=== PATIENT | female | born 1930 | race Caucasian/White ===

== ENCOUNTER 2017-05-04 15:13 | Emergency (ER) | payer MEDICARE, BC ==
--- NOTE | 2017-05-04 16:09 | ED ---
General Adult HPI - General Chief complaint: Head Injury Stated complaint: Fall Time Seen by Provider: 05/04/17 15:56 Source: patient, RN notes reviewed Mode of arrival: ambulatory Limitations: no limitations - History of Present Illness Initial comments: Patient 86-year-old female who presents emergency room today with a chief complaint of a head injury that occurred approximate hour ago. Patient admitted that she walked into her bathroom and she went to turn around and lost her balance falling over to the left side door frame. She states she had left side of her head. She states she did not lose consciousness. She does admit to a mild headache and some sensitivity to the area. Patient denies any other injury or complaint. Patient states she is not on any blood thinners. Patient denies any recent fever, chills, shortness of breath, chest pain, back pain, abdominal pain, nausea or vomiting, numbness or tingling, visual changes, or any other complaints. - Related Data Home Medications Medication Instructions Recorded Confirmed Carvedilol [Coreg] 6.25 mg PO BID 09/23/15 05/04/17 Cholecalciferol [Vitamin D3] 2,000 unit PO DAILY 09/23/15 05/04/17 Ferrous Sulfate [Feosol] 325 mg PO MOWEFR 09/23/15 05/04/17 Lisinopril [Prinivil] 5 mg PO DAILY 09/23/15 05/04/17 Omeprazole [PriLOSEC] 20 mg PO BID 09/23/15 05/04/17 Simvastatin [Zocor] 40 mg PO HS 09/23/15 05/04/17 Vit C/E/Zn/Coppr/Lutein/Zeaxan 1 cap PO BID 09/23/15 05/04/17 [Preservision Areds 2 Softgel] Aspirin [Adult Low Dose Aspirin EC] 81 mg PO DAILY 05/04/17 05/04/17 Clemastine Fumarate [Tavist] 2.68 mg PO DAILY 05/04/17 05/04/17 Allergies Allergy/AdvReac Type Severity Reaction Status Date / Time Sulfa (Sulfonamide Allergy Unknown Verified 05/04/17 16:15 Antibiotics) Review of Systems ROS Statement: Those systems with pertinent positive or pertinent negative responses have been documented in the HPI. ROS Other: All systems not noted in ROS Statement are negative. Past Medical History Past Medical History: Myocardial Infarction ([place]) Additional Past Medical History / Comment(s): gastric ulcer hiatal hernia Last Myocardial Infarction Date:: 2013 History of Any Multi-Drug Resistant Organisms: None Reported Past Surgical History: Bowel Resection, Heart Catheterization, Hernia Repair Additional Past Surgical History / Comment(s): colonoscopy Past Anesthesia/Blood Transfusion Reactions: No Reported Reaction Past Psychological History: No Psychological Hx Reported Smoking Status: Never smoker Past Alcohol Use History: None Reported Past Drug Use History: None Reported - Past Family History Mother Additional Family Medical History / Comment(s): brain aneursym Father Additional Family Medical History / Comment(s): "blood clot to heart" General Exam - General Exam Comments Initial Comments: General: The patient is awake and alert, in no distress, and does not appear acutely ill. Eye: Pupils are equal, round and reactive to light, extra-ocular movements are intact. No nystagmus. There is normal conjunctiva bilaterally. No signs of icterus. Ears, nose, mouth and throat: There are moist mucous membranes and no oral lesions. Neck: The neck is supple, there is no tenderness or JVD. Cardiovascular: There is a regular rate and rhythm. No murmur, rub or gallop is appreciated. Respiratory: Lungs are clear to auscultation, respirations are non-labored, breath sounds are equal. No wheezes, stridor, rales, or rhonchi. Musculoskeletal: Normal ROM, no tenderness. Strength 5/5. Sensation intact. Pulses equal bilaterally 2+. Neurological: A&O x 3. CN II-XII intact, There are no obvious motor or sensory deficits. Coordination appears grossly intact. Speech is normal. Skin: Skin is warm and dry and no rashes or lesions are noted. Psychiatric: Cooperative, appropriate mood & affect, normal judgment. Limitations: no limitations Course Vital Signs 05/04/17 15:37 Temperature 98.2 F Pulse Rate 81 Respiratory 20 Rate Blood Pressure 151/65 O2 Sat by Pulse 97 Oximetry Medical Decision Making - Medical Decision Making Patient CT reviewed and shows no acute abnormalities. Results were discussed with the patient. Patient will be discharged home advised to follow-up family doctor in the next 2 days return here to the emergency room if any symptoms increase or worsen or for new concerns. Disposition Clinical Impression: Head injury Disposition: HOME SELF-CARE Condition: Good Instructions: Head Injury (ED) Additional Instructions: Please follow-up with family doctor in the next 2 days of symptoms have not improved. Please return to emergency room if the symptoms increase or worsen or for any other concerns. Referrals: Mary Chiu MD [Primary Care Provider] - 1-2 days Time of Disposition: 17:09
--- NOTE | 2017-05-04 16:55 | CT ---
EXAMINATION TYPE: CT brain fay zambrano DATE OF EXAM: 05/04/2017 COMPARISON: 08/18/2012 HISTORY: Fall with head injury. CT DLP: 1278.6 mGycm. Automated Exposure Control for Dose Reduction was Utilized. TECHNIQUE: CT scan of the head and cervical spine are performed without contrast. FINDINGS: There is no acute intracranial hemorrhage or midline shift identified. There is diffuse v entricular and sulcal prominence consistent with diffuse age-related cerebral atrophy. There is low- attenuation in the periventricular white matter consistent with chronic small vessel ischemic change. The globes are intact and the visualized sinuses are clear. Patient positioning is suboptimal, somewhat limiting evaluation of the cervical spine as there is an exaggerated cervical lordosis. Small posterior disc osteophyte complexes are seen at C3-C4, C5-C6 and C6-C7. Cervical spine is visualized in its entirety from C1 through upper thoracic levels and demons trates satisfactory alignment without evidence of acute fracture or dislocation. Prevertebral soft t issue appears within normal limits. The C1-C2 articulation is unremarkable. Multilevel mild degener ative changes of the cervical spine are seen without gross evidence of spinal canal stenosis. IMPRESSION: 1. There is no gross evidence of acute fracture or dislocation evident in the cervical spine. Multile natalie mild degenerative changes of the cervical spine. 2. No acute intracranial hemorrhage, mass effect, or midline shift is seen. There is diffuse age-rel ated cerebral atrophy and chronic small vessel ischemic change noted.
[2017-05-04 17:18] VITALS: BP 134/62; PULSE 68; RESP 16; TEMP 97.6
== END 2017-05-04 17:28 | disposition home or self-care (01) ==
LOC: EC 15:13
DX: S09.90XA Unspecified injury of head, initial encounter (principal); I25.2 Old myocardial infarction; Z79.82 Long term (current) use of aspirin; Z79.899 Other long term (current) drug therapy; Z88.2 Allergy status to sulfonamides; Z87.19 Personal history of other diseases of the digestive system; W01.0XXA Fall on same level from slipping, tripping and stumbling without subsequent striking against object, initial encounter; Y93.89 Activity, other specified; Y92.002 Bathroom of unspecified non-institutional (private) residence as the place of occurrence of the external cause
CPT/HCPCS: 70450; 72125; 99283

== ENCOUNTER 2017-10-11 08:14 | Observation (INO) | payer MEDICARE, BC ==
[2017-10-11] MEDS ORDERED: SODIUM CHLORIDE 0.9% 500 ML IV STA (08:50)
--- NOTE | 2017-10-11 08:58 | ED ---
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 Patient states the symptoms lasted an hour and then subsided. Patient states since then her right arm which was the arm or weakness was becoming painful in the upper arm area. Patient did not injure in any way. Patient states she never had any numbness to the arm just weakness after the weakness is when the pain started. Patient denies any chest pain difficulty breathing. Patient denies abdominal pain patient denies any nausea vomiting diarrhea. Patient denies any recent fever chills or cough. Patient denies headache. Patient states he was symptom she is having now his upper right arm pain. - Related Data Home Medications Medication Instructions Recorded Confirmed Carvedilol [Coreg] 6.25 mg PO BID 09/23/15 10/11/17 Cholecalciferol [Vitamin D3] 2,000 unit PO DAILY 09/23/15 10/11/17 Ferrous Sulfate [Feosol] 325 mg PO MOWEFR 09/23/15 10/11/17 Lisinopril [Prinivil] 5 mg PO DAILY 09/23/15 10/11/17 Omeprazole [PriLOSEC] 20 mg PO BID 09/23/15 10/11/17 Simvastatin [Zocor] 40 mg PO DAILY 09/23/15 10/11/17 Vit C/E/Zn/Coppr/Lutein/Zeaxan 1 cap PO BID 09/23/15 10/11/17 [Preservision Areds 2 Softgel] Aspirin [Adult Low Dose Aspirin EC] 81 mg PO DAILY 05/04/17 10/11/17 Clemastine Fumarate [Tavist] 2.68 mg PO DAILY 05/04/17 10/11/17 Allergies Allergy/AdvReac Type Severity Reaction Status Date / Time Sulfa (Sulfonamide Allergy Unknown Verified 10/11/17 08:25 Antibiotics) Review of Systems ROS Statement: Those systems with pertinent positive or pertinent negative responses have been documented in the HPI. ROS Other: All systems not noted in ROS Statement are negative. Past Medical History Past Medical History: Myocardial Infarction ([place]) Additional Past Medical History / Comment(s): gastric ulcer hiatal hernia Last Myocardial Infarction Date:: 2013 History of Any Multi-Drug Resistant Organisms: None Reported Past Surgical History: Bowel Resection, Heart Catheterization, Hernia Repair Additional Past Surgical History / Comment(s): colonoscopy Past Anesthesia/Blood Transfusion Reactions: No Reported Reaction Past Psychological History: No Psychological Hx Reported Smoking Status: Never smoker Past Alcohol Use History: None Reported Past Drug Use History: None Reported - Past Family History Mother Additional Family Medical History / Comment(s): brain aneursym Father Additional Family Medical History / Comment(s): "blood clot to heart" General Exam - General Exam Comments Initial Comments: GENERAL: Patient is well-developed and well-nourished. Patient is nontoxic and well- hydrated and is in no acute distress. ENT: Neck is soft and supple. No significant lymphadenopathy is noted. Oropharynx is clear. Moist mucous membranes. Neck has full range of motion without eliciting any pain. EYES: The sclera were anicteric and conjunctiva were pink and moist. Extraocular movements were intact and pupils were equal round and reactive to light. Eyelids were unremarkable. PULMONARY: Unlabored respirations. Good breath sounds bilaterally. No audible rales rhonchi or wheezing was noted. CARDIOVASCULAR: There is a regular rate and rhythm without any murmurs gallops or rmildrmal bowel sounds. No palpable organomegaly was noted. There is no palpable pulsatile mass. ABDOMEN: Abdomen is nontender nondistended. SKIN: Skin is clear with no lesions or rashes and otherwise unremarkable. NEUROLOGIC: Patient is alert and oriented x3. Cranial nerves II through XII are grossly intact. Motor and sensory are also intact. Normal speech, volume and content. Symmetrical smile. MUSCULOSKELETAL: Normal extremities with adequate strength and full range of motion. No lower extremity swelling or edema. No calf tenderness. patient has some slight tenderness to palpation of the upper arm. No bruising is noted LYMPHATICS: No significant lymphadenopathy is noted PSYCHIATRIC: Normal psychiatric evaluation. Normal interpersonal interactions appears functionally intact in deals appropriately with others. No signs of depression. No signs of anxiety. Limitations: no limitations Course Vital Signs 10/11/17 08:18 Temperature 97.9 F Pulse Rate 61 Respiratory 16 Rate Blood Pressure 150/71 O2 Sat by Pulse 98 Oximetry Medical Decision Making - Medical Decision Making EKG shows normal sinus rhythm at 60 bpm AL interval is 132 QRS is 76 QT intervals 400 QTC is 400. Patient's EKG shows no ST segment elevation or depression or T wave abnormalities are noted. He states computed tomography scan of the head shows no acute abnormality. Chest x-ray shows no acute abnormality I spoke with Dr. Munoz he agreed to admit the patient I wrote admitting orders. - Lab Data Result diagrams: 10/11/17 09:00 10/11/17 09:00 Lab Results 10/11/17 10/11/17 10/11/17 Range/Units 09:00 09:00 09:00 WBC 3.1 L (3.8-10.6) k/uL RBC 4.49 (3.80-5.40) m/uL Hgb 13.0 (11.4-16.0) gm/dL Hct 39.5 (34.0-46.0) % MCV 88.0 (80.0-100.0) fL MCH 28.9 (25.0-35.0) pg MCHC 32.8 (31.0-37.0) g/dL RDW 13.4 (11.5-15.5) % Plt Count 172 (150-450) k/uL Neutrophils % 38 % Lymphocytes % 41 % Monocytes % 8 % Eosinophils % 8 % Basophils % 2 % Neutrophils # 1.2 L (1.3-7.7) k/uL Lymphocytes # 1.3 (1.0-4.8) k/uL Monocytes # 0.2 (0-1.0) k/uL Eosinophils # 0.2 (0-0.7) k/uL Basophils # 0.0 (0-0.2) k/uL PT (9.0-12.0) sec INR (<1.2) APTT (22.0-30.0) sec Sodium 142 (137-145) mmol/L Potassium 4.5 (3.5-5.1) mmol/L Chloride 106 (98-107) mmol/L Carbon Dioxide 26 (22-30) mmol/L Anion Gap 10 mmol/L BUN 16 (7-17) mg/dL Creatinine 0.69 (0.52-1.04) mg/dL Est GFR (CKD-EPI)AfAm >90 (>60 ml/min/1.73 sqM) Est GFR (CKD-EPI)NonAf 80 (>60 ml/min/1.73 sqM) Glucose 87 (74-99) mg/dL Calcium 9.7 (8.4-10.2) mg/dL Total Bilirubin 1.0 (0.2-1.3) mg/dL AST 23 (14-36) U/L ALT 25 (9-52) U/L Alkaline Phosphatase 86 (38-126) U/L Total Creatine Kinase 64 (30-135) U/L CK-MB (CK-2) 1.7 (0.0-2.4) ng/mL CK-MB (CK-2) Rel Index 2.7 Troponin I <0.012 (0.000-0.034) ng/mL Total Protein 6.1 L (6.3-8.2) g/dL Albumin 3.8 (3.5-5.0) g/dL 10/11/17 Range/Units 09:00 WBC (3.8-10.6) k/uL RBC (3.80-5.40) m/uL Hgb (11.4-16.0) gm/dL Hct (34.0-46.0) % MCV (80.0-100.0) fL MCH (25.0-35.0) pg MCHC (31.0-37.0) g/dL RDW (11.5-15.5) % Plt Count (150-450) k/uL Neutrophils % % Lymphocytes % % Monocytes % % Eosinophils % % Basophils % % Neutrophils # (1.3-7.7) k/uL Lymphocytes # (1.0-4.8) k/uL Monocytes # (0-1.0) k/uL Eosinophils # (0-0.7) k/uL Basophils # (0-0.2) k/uL PT 10.0 (9.0-12.0) sec INR 1.0 (<1.2) APTT 23.0 (22.0-30.0) sec Sodium (137-145) mmol/L Potassium (3.5-5.1) mmol/L Chloride (98-107) mmol/L Carbon Dioxide (22-30) mmol/L Anion Gap mmol/L BUN (7-17) mg/dL Creatinine (0.52-1.04) mg/dL Est GFR (CKD-EPI)AfAm (>60 ml/min/1.73 sqM) Est GFR (CKD-EPI)NonAf (>60 ml/min/1.73 sqM) Glucose (74-99) mg/dL Calcium (8.4-10.2) mg/dL Total Bilirubin (0.2-1.3) mg/dL AST (14-36) U/L ALT (9-52) U/L Alkaline Phosphatase (38-126) U/L Total Creatine Kinase (30-135) U/L CK-MB (CK-2) (0.0-2.4) ng/mL CK-MB (CK-2) Rel Index Troponin I (0.000-0.034) ng/mL Total Protein (6.3-8.2) g/dL Albumin (3.5-5.0) g/dL Disposition Clinical Impression: TIA (transient ischemic attack) Disposition: ADMITTED IP TO THIS HOSP Referrals: Mary Chiu MD [Primary Care Provider] - 1-2 days Time of Disposition: 10:49
[2017-10-11 09:30] LABS: Basophils % (A) 2 %; Eosinophils # (A) 0.2 k/uL (0-0.7); Eosinophils % (A) 8 %; HCT 39.5 % (34.0-46.0); Lymphocytes # (A) 1.3 k/uL (1.0-4.8); Lymphocytes % (A) 41 %; MCH 28.9 pg (25.0-35.0); MCHC 32.8 g/dL (31.0-37.0); Mean Platelet Volume 7.9; Monocytes # (A) 0.2 k/uL (0-1.0); Monocytes % (A) 8 %; Neutrophils # (A) 1.2 k/uL (1.3-7.7); Neutrophils % (A) 38 %; Platelet Count 172 k/uL (150-450); RBC 4.49 m/uL (3.80-5.40); RDW 13.4 % (11.5-15.5); WBC 3.1 k/uL (3.8-10.6)
[2017-10-11 09:39] LABS: ALT 25 U/L (9-52); AST 23 U/L (14-36); Albumin 3.8 g/dL (3.5-5.0); Alkaline Phosphatase 86 U/L (38-126); Anion Gap 10 mmol/L; Blood Urea Nitrogen 16 mg/dL (7-17); Calcium 9.7 mg/dL (8.4-10.2); Carbon Dioxide 26 mmol/L (22-30); Chloride 106 mmol/L (98-107); Glucose 87 mg/dL (74-99); Potassium 4.5 mmol/L (3.5-5.1); Sodium 142 mmol/L (137-145); Total Protein 6.1 g/dL (6.3-8.2)
--- NOTE | 2017-10-11 09:39 | CT ---
EXAMINATION TYPE: CT brain wo con DATE OF EXAM: 10/11/2017 COMPARISON: NONE HISTORY: Numbness and weakness right side CT DLP: 1064.[address] of the brain was performed. The ventricles, basal cisterns and sulci overlying the cerebral convexities demonstrate mild enlargem ent. There is no evidence for intracranial hemorrhage or sulcal effacement. There is decreased attenuation about the periventricular white matter and deep white matter of both c erebral hemispheres, compatible with chronic small vessel ischemia. Differential diagnosis does inclu de demyelination. No mass effects are seen.No midline shift. Osseous calvarium is intact. If symptoms persist consider MRI. IMPRESSION: 1. Age related atrophic and chronic small vessel ischemic change without acute intracranial process s een at this time.
--- NOTE | 2017-10-11 09:42 | XR ---
EXAMINATION TYPE: XR chest 2V DATE OF EXAM: 10/11/2017 COMPARISON: 08/18/2012 HISTORY: Shortness of breath TECHNIQUE: Frontal and lateral views of the chest are obtained. FINDINGS: Scattered senescent parenchymal changes noted. Hyperinflation compatible with COPD. No evidence for infiltrate. No evidence for atelectasis. Heart size is stable. Mediastinal structures are stable and grossly unremarkable. No evidence for hilar prominence. Degenerative changes dorsal spine. IMPRESSION: 1. No evidence for acute pulmonary disease.
[2017-10-11 09:50] LABS: Creatine Kinase 64 U/L (30-135)
[2017-10-11 10:02] LABS: Creatine Kinase MB 1.7 ng/mL (0.0-2.4); Troponin I <0.012 ng/mL (0.000-0.034)
[2017-10-11] MEDS ORDERED: ASPIRIN 325 MG TAB PO STA (10:49)
--- NOTE | 2017-10-11 13:20 | US ---
EXAMINATION TYPE: US carotid duplex BILAT DATE OF EXAM: 10/11/2017 COMPARISON: NONE CLINICAL HISTORY: Stenosis. Right arm pain, weakness and numbness x 1 day EXAM MEASUREMENTS: RIGHT: Peak Systolic Velocity (PSV) cm/sec ----- Right CCA: 48.5 ----- Right ICA: 117.4 ----- Right ECA: 76.8 ICA/CCA ratio: 2.4 RIGHT: End Diastole cm/sec ----- Right CCA: 11.0 ----- Right ICA: 25.4 ----- Right ECA: 7.8 LEFT: Peak Systolic Velocity (PSV) cm/sec ----- Left CCA: 59.0 ----- Left ICA: 112.1 ----- Left ECA: 100.0 ICA/CCA ratio: 1.9 LEFT: End Diastole cm/sec ----- Left CCA: 12.1 ----- Left ICA: 24.8 ----- Left ECA: 8.6 VERTEBRALS (direction of flow): Right Vertebral: Antegrade Left Vertebral: Antegrade Rhythm: Normal Bilateral intimal thickening, no elevated velocities but right ICA/CCA ratio of 2.4 Grayscale, color Doppler, spectral Doppler imaging performed of the carotid arteries. Waveform analys is does not show significant stenosis of the proximal internal carotid arteries bilaterally by Dopple r criteria. IMPRESSION: No hemodynamic significant stenosis of the proximal internal carotid arteries bilaterall y by Doppler criteria, an indirect measurement of carotid stenosis
[2017-10-11] MEDS ORDERED: LORATADINE 10 MG TAB PO PRN (16:45)
[2017-10-11] MEDS: LISINOPRIL 5 MG TAB PO SCH (17:50)
[2017-10-11] MEDS: CARVEDILOL 6.25 MG TAB PO SCH (17:50)
[2017-10-11] MEDS: PANTOPRAZOLE 40 MG TABLET PO SCH (20:22)
[2017-10-11] MEDS: VIT A,C & E-LUTEIN-MINERALS 1 EACH TAB PO SCH (20:22)
--- NOTE | 2017-10-11 20:38 | CONS ---
CONSULTATION DATE OF CONSULTATION: 10/11/2017. CHIEF COMPLAINT: Transient ischemic attack. HISTORY OF PRESENT ILLNESS: Mrs. Walsh is a pleasant 87-year-old female, who is being evaluated by the neurology service per the request of Dr. Munoz for a transient ischemic attack. The patient was brought into [facility] Emergency Room after she noticed a sudden onset of weakness involving her right upper extremity. The patient states that she was having difficulty controlling her right arm and when she did lift it, it fell heavier than her left arm. She denies any previous history of strokes or transient ischemic attack. Her symptoms lasted approximately 1 hour and resolved spontaneously. The patient does take aspirin 81 mg daily at home. In the emergency room, a CT scan of the brain was done, which showed generalized atrophy and small-vessel ischemic changes. Her carotid Doppler showed no hemodynamically significant stenosis. Her CBC was normal except for mild leukopenia at 3.1. Her comprehensive metabolic profile and INR were normal. At the time of my evaluation, she is lying in her bed and appears to be in no acute distress. She denies any current neurological symptoms. PAST MEDICAL HISTORY: Hypertension, history of myocardial infarction, peptic ulcer, hiatal hernia, history of bowel resection, hernia repair. SOCIAL HISTORY: The patient denies any tobacco, alcohol or drug use. FAMILY HISTORY: Positive for aneurysms. HOME MEDICATIONS: Reviewed in the chart. ALLERGIES: SULFA DRUGS. REVIEW OF SYSTEMS: CONSTITUTIONAL: Negative. EYES: Negative. ENT: Negative. CARDIOVASCULAR: As mentioned above. RESPIRATORY: Negative. NEUROLOGICAL: As mentioned above. GASTROINTESTINAL: Negative. GENITOURINARY: Negative. PSYCHIATRIC: Negative. DERMATOLOGICAL: Negative. MUSCULOSKELETAL: Positive for occasional joint pain. PHYSICAL EXAM: Vital signs show a temperature of 96.3, pulse 63, respirations 16, blood pressure 154/70. GENERAL APPEARANCE: The patient is a well-developed, elderly female who appears to be in no acute distress. HEENT: Normocephalic, atraumatic, no facial asymmetry is seen. Extraocular muscles are intact. NECK: Supple with no masses felt. CARDIOVASCULAR: Regular rate and rhythm. ABDOMEN: Nontender, nondistended. EXTREMITIES: Showed no edema or clubbing. NEUROLOGICAL EXAM: The patient is alert aware and oriented x3. Speech and language are normal. Strength is full in all 4 extremities. Sensory exam was normal to light touch in all 4 extremities. No pronator drift is seen. No tremors or seizure-like activity is seen. No facial asymmetry is noticed on cranial nerve testing. IMPRESSION: 1. Transient ischemic attack. 2. Right arm weakness, resolved. 3. Small vessel ischemic disease. RECOMMENDATION: The patient does appear to have suffered a transient ischemic attack with a transient episode of right arm weakness. Her symptoms did resolve one hour after the onset of the symptoms and they continue to be resolved at this time. I did review her carotid Doppler which showed no hemodynamically significant stenosis. The patient was on aspirin 81 mg daily at home. I will discontinue aspirin and start her on Plavix 75 mg daily. I will order a fasting lipid panel, EEG, and serum homocystine level. Continue IV hydration as tolerated. Continue neuro checks. I will continue to follow with you. Further recommendations to follow. Thank you for allowing me to participate in the care of your patient. If you have any questions, please feel free to contact me. KESHAWN / KESHAV: [id number] /
[2017-10-11] MEDS ORDERED: ATORVASTATIN 20 MG TAB PO SCH (21:00)
[2017-10-12 06:26] LABS: Cholesterol 148 mg/dL (<200); HDL Cholesterol 73 mg/dL (40-60); LDL Cholesterol,Calculated 42 mg/dL (0-99); Triglycerides 167 mg/dL (<150)
[2017-10-12] MEDS: PANTOPRAZOLE 40 MG TABLET PO SCH (07:10)
[2017-10-12] MEDS ORDERED: ASPIRIN 325 MG TAB PO SCH (09:00)
[2017-10-12] MEDS ORDERED: CHOLECALCIFEROL 1,000 UNIT TAB PO SCH (09:00)
[2017-10-12] MEDS ORDERED: NON-FORMULARY DRUG (Aspirin [Adult Low Dose Aspirin Ec] 81 MG) PO SCH (09:00)
[2017-10-12] MEDS ORDERED: CLOPIDOGREL 75 MG TAB PO SCH (09:00)
[2017-10-12] MEDS: CARVEDILOL 6.25 MG TAB PO SCH (10:02)
[2017-10-12] MEDS: LISINOPRIL 5 MG TAB PO SCH (10:03)
[2017-10-12] MEDS: VIT A,C & E-LUTEIN-MINERALS 1 EACH TAB PO SCH (10:03)
[2017-10-12 10:14] VITALS: RESP 17; TEMP 97.1
[2017-10-12 13:14] VITALS: BP 123/58; PULSE 59
--- NOTE | 2017-10-12 14:03 | EEG ---
ELECTROENCEPHALOGRAM REPORT DATE OF SERVICE: 10/12/2017 REASON FOR TESTING: Transient ischemic attack. DESCRIPTION OF THE PROCEDURE: This EEG was performed using a 21 channel digital electroencephalograph, following international 10-20 system. DESCRIPTION OF THE RECORDING: From the beginning of the tracing, with patient's eyes closed, the background rhythm was mostly consisting of 8 to 9 Hz alpha frequency in the posterior occipital leads. No obvious asymmetry is seen. Occasional movement and muscle artifacts are seen. Photic stimulation was performed with a good driving response seen. No pathological waves were elicited. Hyperventilation was not performed. The patient does reach stage II of sleep during the tracing and occasional sleep spindles are seen. No epileptiform discharges were seen. Her EKG lead showed a regular rate and rhythm. INTERPRETATION: This asleep and awake EEG can be considered within normal limits. There was no asymmetry seen. No epileptiform discharges were noticed. The absence of epileptiform discharges does not rule out the diagnosis of epilepsy, therefore clinical correlation is recommended. MMWILL / KESHAV: [id number] /
--- NOTE | 2017-10-12 14:30 | P.HPIM ---
History of Present Illness H&P Date: 10/12/17 Chief Complaint: Right upper extremity weakness This is a 87-year-old female with past medical history significant for essential hypertension, hyperlipidemia, and coronary artery disease who presented to the emergency room for further evaluation of right upper extremity weakness. Patient stated that she was having difficulty controlling her left arm and said that he was heavier than the right arm. she noticed some weakness as well. No headache, numbness, or weakness otherwise in her body. She presented to the emergency room and by the time she arrived her symptoms has resolved. In the emergency room, computed tomography scan of the brain showed age-related atrophic and chronic small vessel ischemic changes with no acute intracranial findings. She was admitted to hospital for neurology evaluation and possible TIA. She underwent a carotid Doppler showing no hemodynamically significant stenosis. EEG was normal. Most of her lab work was normal or within acceptable range including her cholesterol level. Her home dose of aspirin was switched to Plavix daily by neurology. She will continue her other medications otherwise. She was cleared by neurology for discharge home. Below is a list of her medical problems addressed during this hospitalization. 1. Suspected TIA with computed tomography scan of the brain showing no acute finding 2. Essential hypertension: Blood pressure well-controlled 3. Mixed hyperlipidemia, cholesterol at goal. Continue home dose of Zocor. Review of Systems Review of system: 14 points review of systems were obtained and were negative except to what were mentioned in the HPI. Past Medical History Past Medical History: Coronary Artery Disease (CAD), Chest Pain / Angina, Eye Disorder, GERD/Reflux, Hyperlipidemia, Hypertension, Myocardial Infarction ([place]) , Osteoarthritis (OA), Pneumonia, Renal Disease, Skin Disorder Additional Past Medical History / Comment(s): Duodenal ulcer, hiatal hernia, diverticular disease with bowel resection, hemorrhoids, multiple bronchitis, pneumonias, arthritis in back, fingers and feet, migraines years ago, tinnitis bilaterally at times, [place] R ear, macular degeneration bilaterally, nephrolithiasis with surgery, occasional vertigo, rosacia. Last Myocardial Infarction Date:: 2013 History of Any Multi-Drug Resistant Organisms: None Reported Past Surgical History: Appendectomy, Bowel Resection, Cholecystectomy, Heart Catheterization, Hernia Repair, Hysterectomy Additional Past Surgical History / Comment(s): 2013 cardiac cath-minimal disease , EGD, colonoscopy, bilateral inguinal hernia repairs, kidney stone removal, bilateral cataract removal with lens implants, R foot surgery. Past Anesthesia/Blood Transfusion Reactions: No Reported Reaction Smoking Status: Former smoker - Past Family History Mother Additional Family Medical History / Comment(s): Mother had a thoracic aneurysm and of a brain aneursym rupture at the age of 66yrs. Father Additional Family Medical History / Comment(s): "blood clot to heart"- of at the age of 58yrs. Medications and Allergies Home Medications Medication Instructions Recorded Confirmed Type Carvedilol [Coreg] 6.25 mg PO BID 09/23/15 10/11/17 History Cholecalciferol [Vitamin D3] 2,000 unit PO DAILY 09/23/15 10/11/17 History Lisinopril [Prinivil] 5 mg PO DAILY 09/23/15 10/11/17 History Omeprazole [PriLOSEC] 20 mg PO BID 09/23/15 10/11/17 History Simvastatin [Zocor] 40 mg PO HS 09/23/15 10/11/17 History Vit C/E/Zn/Coppr/Lutein/Zeaxan 1 cap PO BID 09/23/15 10/11/17 History [Preservision Areds 2 Softgel] Aspirin [Adult Low Dose Aspirin EC] 81 mg PO DAILY 05/04/17 10/11/17 History Clemastine Fumarate [Tavist] 2.68 mg PO DAILY PRN 05/04/17 10/11/17 History Allergies Allergy/AdvReac Type Severity Reaction Status Date / Time Sulfa (Sulfonamide Allergy Unknown Verified 10/11/17 08:25 Antibiotics) Physical Exam Vitals: Vital Signs Temp Pulse Pulse Resp BP BP Pulse Ox 10/12/17 12:00 59 L 17 123/58 96 10/12/17 08:00 97.1 F L 71 17 137/69 96 10/12/17 04:00 96.2 F L 71 20 128/63 93 L 10/12/17 00:00 98.3 F 67 14 125/57 96 10/11/17 20:00 96.7 F L 67 14 144/65 96 10/11/17 16:25 96.3 F L 63 16 154/70 97 10/11/17 16:23 65 18 10/11/17 15:30 98.3 F 65 18 108/54 10/11/17 14:30 68 18 147/66 147/66 98 Intake and Output 10/11/17 10/12/17 10/12/17 22:59 06:59 14:59 Intake Total 100 240 Balance 100 240 Intake: Oral 100 240 Other: # Voids 1 1 Weight 76.2 kg General: The patient is awake and alert, in no distress Eye: there is normal conjunctiva bilaterally. Neck: The neck is supple, there is no JVD. Cardiovascular: Normal S1-S2, no S3-S4, no murmurs. Respiratory: Lungs clear to auscultation bilaterally Gastrointestinal: Abdomen is soft, nontender Musculoskeletal: There is no pedal edema. Neurological:. Speech is normal. Skin: Skin is warm and dry Results CBC & Chem 7: 10/11/17 09:00 10/11/17 09:00 Labs: Abnormal Lab Results - Last 24 Hours (Table) 10/12/17 Range/Units 05:46 Triglycerides 167 H (<150) mg/dL HDL Cholesterol 73 H (40-60) mg/dL Thrombosis Risk Factor Assmnt - Choose All That Apply Any of the Below Risk Factors Present?: Yes Each Factor Represents 1 point: Obesity (BMI >25) Other Risk Factors: Yes Each Risk Factor Represents 3 Points: Age 75 years or older Other congenital or acquired thrombophilia - If yes, enter type in comment: No Thrombosis Risk Factor Assessment Total Risk Factor Score: 4 Thrombosis Risk Factor Assessment Level: Moderate Risk Assessment and Plan Assessment: This is a 87-year-old female with past medical history significant for essential hypertension, hyperlipidemia, and coronary artery disease who presented to the emergency room for further evaluation of right upper extremity weakness. Patient stated that she was having difficulty controlling her left arm and said that he was heavier than the right arm. she noticed some weakness as well. No headache, numbness, or weakness otherwise in her body. She presented to the emergency room and by the time she arrived her symptoms has resolved. In the emergency room, computed tomography scan of the brain showed age-related atrophic and chronic small vessel ischemic changes with no acute intracranial findings. She was admitted to hospital for neurology evaluation and possible TIA. She underwent a carotid Doppler showing no hemodynamically significant stenosis. EEG was normal. Most of her lab work was normal or within acceptable range including her cholesterol level. Her home dose of aspirin was switched to Plavix daily by neurology. She will continue her other medications otherwise. She was cleared by neurology for discharge home. Below is a list of her medical problems addressed during this hospitalization. 1. Suspected TIA with computed tomography scan of the brain showing no acute finding 2. Essential hypertension: Blood pressure well-controlled 3. Mixed hyperlipidemia, cholesterol at goal. Continue home dose of Zocor.
--- NOTE | 2017-10-12 14:36 | P.DS ---
Providers Date of admission: 10/11/17 10:49 Expected date of discharge: 10/12/17 Attending physician: Cooper Munoz Consults: 10/11/17 10:50 Consult Physician Routine Consulting Provider: Lakeshia Garcia Consult Reason/Comments: TIA Do you want consulting provider notified?: Yes Primary care physician: Mary Chiu [facility] Course: This is a 87-year-old female with past medical history significant for essential hypertension, hyperlipidemia, and coronary artery disease who presented to the emergency room for further evaluation of right upper extremity weakness. Patient stated that she was having difficulty controlling her left arm and said that he was heavier than the right arm. she noticed some weakness as well. No headache, numbness, or weakness otherwise in her body. She presented to the emergency room and by the time she arrived her symptoms has resolved. In the emergency room, computed tomography scan of the brain showed age-related atrophic and chronic small vessel ischemic changes with no acute intracranial findings. She was admitted to hospital for neurology evaluation and possible TIA. She underwent a carotid Doppler showing no hemodynamically significant stenosis. EEG was normal. Most of her lab work was normal or within acceptable range including her cholesterol level. Her home dose of aspirin was switched to Plavix daily by neurology. She will continue her other medications otherwise. She was cleared by neurology for discharge home. Below is a list of her medical problems addressed during this hospitalization. 1. Suspected TIA with computed tomography scan of the brain showing no acute finding 2. Essential hypertension: Blood pressure well-controlled 3. Mixed hyperlipidemia, cholesterol at goal. Continue home dose of Zocor. Plan - Discharge Summary Discharge Rx Participant: No New Discharge Prescriptions: New Clopidogrel [Plavix] 75 mg PO DAILY #30 tab Continue Lisinopril [Prinivil] 5 mg PO DAILY Vit C/E/Zn/Coppr/Lutein/Zeaxan [Preservision Areds 2 Softgel] 1 cap PO BID Cholecalciferol [Vitamin D3] 2,000 unit PO DAILY Carvedilol [Coreg] 6.25 mg PO BID Simvastatin [Zocor] 40 mg PO HS Clemastine Fumarate [Tavist] 2.68 mg PO DAILY PRN PRN Reason: Allergy Symptoms Discontinued Omeprazole [PriLOSEC] 20 mg PO BID Aspirin [Adult Low Dose Aspirin EC] 81 mg PO DAILY Discharge Medication List Carvedilol [Coreg] 6.25 mg PO BID 09/23/15 [History] Cholecalciferol [Vitamin D3] 2,000 unit PO DAILY 09/23/15 [History] Lisinopril [Prinivil] 5 mg PO DAILY 09/23/15 [History] Simvastatin [Zocor] 40 mg PO HS 09/23/15 [History] Vit C/E/Zn/Coppr/Lutein/Zeaxan [Preservision Areds 2 Softgel] 1 cap PO BID 09/22 [History] Clemastine Fumarate [Tavist] 2.68 mg PO DAILY PRN 05/04/17 [History] Clopidogrel [Plavix] 75 mg PO DAILY #30 tab 10/12/17 [Rx] Follow up Appointment(s)/Referral(s): Mary Chiu MD [Primary Care Provider] - 3 Days Discharge Disposition: HOME SELF-CARE
--- NOTE | 2017-10-12 15:49 | CT ---
EXAMINATION TYPE: CT brain wo con DATE OF EXAM: 10/12/2017 COMPARISON: 10/11/2017 INDICATION: TIA DLP: 981.70 mGycm, Automated exposure control for dose reduction was used. CONTRAST: None CT of the brain is performed utilizing 3 mm thick sections through the posterior fossa and 3 mm thick sections through the remaining calvarium. Study is performed within 24 hours of arrival to the hosp ital. No abnormal hyperdensity is present to suggest an acute intracranial hemorrhage. No mass lesion is evident. No acute infarcts are evident. Ventricles and sulci are appropriate for the patient age. Paranasal sinuses and mastoid air cells within the [id number] are clear. IMPRESSIONS: 1. No acute intracranial process. 2. Age-related atrophy and periventricular ischemic type changes are stable
--- NOTE | 2017-10-12 21:45 | P.PN ---
Subjective Progress Note Date: 10/12/17 Principal diagnosis: TIA Rounded on at 1530 hours, 10/12/17 Neurology is following on a 89-year-old female for TIA. Patient was brought to the emergency room after she noted a sudden onset of weakness involving her right upper extremity. Patient states she was having difficulty controlling her right arm and she did lift it and felt heavier than opposite upper extremity. Denies any previous history of strokes or TIA-like activity. Symptoms lasted approximately 1 hour, resolved spontaneously. She does take 81 mg aspirin at home which was switched to Plavix 75 mg by supervising physician on original consultation. In the ED 2 hours after onset, CT scan of the brain was done which showed generalized atrophy and chronic small vessel ischemic changes. Carotid Doppler was unremarkable/noncontributory. CBC was normal except for mild leukopenia. CMP and INR were normal. On contact, the patient was sitting in bed, resting in no acute distress. Family was in the room. Patient was requesting be discharged. Advised the patient that given the timing of her original CT brain, we did need to repeat a CT of the brain prior to discharge. Patient agreed to proceed. She was advised that if the CT of the brain was negative, she could be discharged home as previously attempted. She was also advised that if she was discharged home she would continue on Plavix and Lipitor at the existing dose and frequency for risk reduction purposes. Objective - Vital Signs Vital signs: Vital Signs Temp 97.1 F L 10/12/17 08:00 Pulse 59 L 10/12/17 12:00 Resp 17 10/12/17 12:00 BP 123/58 10/12/17 12:00 Pulse Ox 96 10/12/17 12:00 Intake & Output 10/12/17 10/12/17 10/13/17 06:59 18:59 06:59 Intake Total 480 Balance 480 Weight 76.2 kg Intake: Oral 480 Other: # Voids 1 1 - Exam General appearance: Alert & oriented x4, no apparent distress. Head: Atraumatic, normocephalic, normal inspection Eyes: Well appearance, PERRLA, EOMI. Absent scleral icterus, conjunctival injection, nystagmus, periorbital swelling. Ear, nose and throat: Normal exam, mucous membranes moist Neck: Normal inspection, absent tenderness, lymphadenopathy. Respiratory: No increased work of breathing Cardiovascular: Regular rate, rhythm GI/abdominal: Normal bowel sounds, nondistended, no tenderness, no guarding, no rebound, no rigidity. Extremities: All range of motion, normal capillary refill, no tenderness, pedal edema joint swelling, calf tenderness. Neurological: cranial nerves II through XII intact no lateralizing weakness no seizure activity noted on physical exam no pronator drift and no nystagmus. strength all 4 extremities is equal and symmetrical sensation all 4 extremities is equal and symmetrical. Psychological: Mood and affect appropriate for setting. - Labs CBC & Chem 7: 10/11/17 09:00 10/11/17 09:00 Labs: Abnormal Lab Results - Last 24 Hours (Table) 10/12/17 Range/Units 05:46 Triglycerides 167 H (<150) mg/dL HDL Cholesterol 73 H (40-60) mg/dL Assessment and Plan (1) TIA (transient ischemic attack) Status: Acute Code(s): G45.9 - TRANSIENT CEREBRAL ISCHEMIC ATTACK, UNSPECIFIED SNOMED Code(s): 732534800 Plan: patient does appear to have suffered a TIA. Symptoms have resolved completely. Patient is back to baseline. Second CT of the brain was negative/ unremarkable for any changes or contributory etiology. His EEG was normal/ unremarkable, carotid Doppler was normal/unremarkable, serum homocysteine level was normal. Fasting lipid panel noted elevated triglycerides and HDL. Patient' s serum homocystine level is normal. status: Neurology will clear the patient for discharge from a neurological standpoint notify the patient to follow-up in our office in 10-14 days.
--- NOTE | 2017-10-15 10:20 | ECHOF ---
Referral Reason:tia MEASUREMENTS -------- HEIGHT: 162.6 cm WEIGHT: 71.2 kg BP: 154/70 RVIDd: 2.9 cm (< 3.3) IVSd: 1.1 cm (0.6 - 1.1) LVIDd: 3.9 cm (3.9 - 5.3) LVPWd: 1.0 cm (0.6 - 1.1) IVSs: 1.5 cm LVIDs: 2.8 cm LVPWs: 1.4 cm LAESV Index (A-L): 25.70 ml/m Ao Diam: 3.2 cm (2.0 - 3.7) AV Cusp: 2.0 cm (1.5 - 2.6) LA Diam: 3.1 cm (2.7 - 3.8) MV E Willem: 0.62 m/s MV DecT: 339 ms MV A Willem: 0.83 m/s MV E/A Ratio: 0.74 RAP: 5.00 mmHg RVSP: 27.22 mmHg FINDINGS -------- Sinus rhythm. This was a technically adequate study. The left ventricular size is normal. There is borderline concentric left ventricular hypertrophy. Overall left ventricular systolic function is normal with, an EF between 55 - 60 %. The right ventricle is normal in size and function. Normal LA size by volume 22+/-6 ml/m2. The right atrium is normal in size. Aortic valve is trileaflet and is mildly thickened. Trace amount of aortic regurgitation. There is no evidence of aortic stenosis. The mitral valve leaflets are mildly thickened. Mild mitral regurgitation is present. Mild tricuspid regurgitation present. Right ventricular systolic pressure is normal at < 35 mmHg. There is no evidence of pulmonary hypertension. The pulmonic valve was not well visualized. The aortic root size is normal. IVC Not well visulized. There is no pericardial effusion. CONCLUSIONS -------- 1. Sinus rhythm. 2. This was a technically adequate study. 3. The left ventricular size is normal. 4. There is borderline concentric left ventricular hypertrophy. 5. Overall left ventricular systolic function is normal with, an EF between 55 - 60 %. 6. Normal LA size by volume 22+/-6 ml/m2. 7. Aortic valve is trileaflet and is mildly thickened. 8. Trace amount of aortic regurgitation. 9. The mitral valve leaflets are mildly thickened. 10. Mild mitral regurgitation is present. 11. Mild tricuspid regurgitation present. 12. Right ventricular systolic pressure is normal at < 35 mmHg. 13. There is no evidence of pulmonary hypertension. 14. The pulmonic valve was not well visualized. 15. The aortic root size is normal. 16. IVC Not well visulized. 17. There is no pericardial effusion. ALLERGY PHYSICIAN: Davie Byrnes RDCS
== END 2017-10-12 16:51 | disposition home or self-care (01) ==
LOC: EC 08:14 → 6SEL 10:49
PROVIDERS: ADMIT Internal Medicine; ATTEND Internal Medicine
DX: R53.1 Weakness (principal); M79.621 Pain in right upper arm; D72.819 Decreased white blood cell count, unspecified; G45.9 Transient cerebral ischemic attack, unspecified; I25.10 Atherosclerotic heart disease of native coronary artery without angina pectoris; I67.9 Cerebrovascular disease, unspecified; I10 Essential (primary) hypertension; E78.2 Mixed hyperlipidemia; K21.9 Gastro-esophageal reflux disease without esophagitis; H35.30 Unspecified macular degeneration; K57.90 Diverticulosis of intestine, part unspecified, without perforation or abscess without bleeding; G43.909 Migraine, unspecified, not intractable, without status migrainosus; M19.90 Unspecified osteoarthritis, unspecified site; H91.90 Unspecified hearing loss, unspecified ear; E66.9 Obesity, unspecified; Z68.28 Body mass index [BMI] 28.0-28.9, adult; Z79.82 Long term (current) use of aspirin; Z79.899 Other long term (current) drug therapy; Z88.2 Allergy status to sulfonamides; I25.2 Old myocardial infarction; Z87.01 Personal history of pneumonia (recurrent); Z87.442 Personal history of urinary calculi; Z87.891 Personal history of nicotine dependence; Z87.11 Personal history of peptic ulcer disease; Z90.49 Acquired absence of other specified parts of digestive tract; Z87.19 Personal history of other diseases of the digestive system; Z82.49 Family history of ischemic heart disease and other diseases of the circulatory system
CPT/HCPCS: 96360 ×2; 99285 ×2; 36415; 95819; 93005; 93306; 97161; 97165; 80061; 80053; 82550; 82553; 84484; 85025; 85610; 85730; 83090; 71046; 93880; 70450 ×2; G0378 ×2

== ENCOUNTER 2020-08-01 18:35 | Emergency (ER) | payer MEDICARE, BC ==
[2020-08-01 19:29] VITALS: RESP 18; TEMP 98.1
--- NOTE | 2020-08-01 21:07 | ED ---
General Adult HPI - General Chief complaint: Extremity Problem,Nontraumatic Stated complaint: back of rt leg purple Time Seen by Provider: 08/01/20 20:57 Source: patient Mode of arrival: ambulatory Limitations: no limitations - History of Present Illness Initial comments: Dictation was produced using [employer] dictation software. please excuse any gra mmatical, word or spelling errors. This patient was cared for during a federal and state declared state of emergency secondary to Covid 19 Chief Complaint: 89-year-old female presents emergency department for concerns of right lower extremity DVT History of Present Illness: Is an 89-year-old female she has multiple comorbidities patient is accompanied by her daughter. Daughter noted that her right lower posterior leg was ecchymotic and purple. It improved since this morning. Daughter brought patient to the emergency department for concerns of possible DVT. Patient denies any calf pain, popliteal pain or medial thigh pain. He has no pain in her leg. She is no history of blood clot. She takes Plavix. She never had a DVT or PE or thromboembolic event in the past. The ROS documented in this emergency department record has been reviewed and confirmed by me. Those systems with pertinent positive or negative responses have been documented in the HPI. All other systems are other negative and/or noncontributory. PHYSICAL EXAM: General Impression: Alert and oriented x3, not in acute distress HEENT: Normocephalic atraumatic, extra-ocular movements intact, pupils equal and reactive to light bilaterally, mucous membranes moist. Cardiovascular: Heart regular rate and rhythm Chest: Able to complete full sentences, no retractions, no tachypnea Abdomen: abdomen soft, non-tender, non-distended, no organomegaly Musculoskeletal: Pulses present and equal in all extremities, no peripheral edema Bilateral lower extremities: Mildly purplish hue to the right posterior distal right lower extremity. its seemingly is symmetrical to the left lower extremity as well Motor: no focal deficits noted Neurological: CN II-XII grossly intact, no focal motor or sensory deficits noted Skin: Intact with no visualized rashes Psych: Normal affect and mood ED course: 89-year-old female brought in by her daughter for concerns of DVT of the right lower extremity. Vital signs upon arrival are within acceptable limits. Ultrasound the lower extremity shows no right lower extremity DVT. There is some subcutaneous edema. Reassurance provided. Patient is advised follow-up with primary care physician. - Related Data Home Medications Medication Instructions Recorded Confirmed Carvedilol [Coreg] 6.25 mg PO BID 09/23/15 10/11/17 Cholecalciferol [Vitamin D3 (25 2,000 unit PO DAILY 09/23/15 10/11/17 Mcg = 1000 Iu)] Lisinopril [Prinivil] 5 mg PO DAILY 09/23/15 10/11/17 Simvastatin [Zocor] 40 mg PO HS 09/23/15 10/11/17 Vit C/E/Zn/Coppr/Lutein/Zeaxan 1 cap PO BID 09/23/15 10/11/17 [Preservision Areds 2 Softgel] Clemastine Fumarate [Tavist] 2.68 mg PO DAILY PRN 05/04/17 10/11/17 Previous Rx's Medication Instructions Recorded Clopidogrel [Plavix] 75 mg PO DAILY #30 tab 10/12/17 Allergies Allergy/AdvReac Type Severity Reaction Status Date / Time Sulfa (Sulfonamide Allergy Unknown Verified 10/11/17 08:25 Antibiotics) Review of Systems ROS Statement: Those systems with pertinent positive or pertinent negative responses have been documented in the HPI. ROS Other: All systems not noted in ROS Statement are negative. Past Medical History Past Medical History: Coronary Artery Disease (CAD), Chest Pain / Angina, Eye Disorder, GERD/Reflux, Hyperlipidemia, Hypertension, Myocardial Infarction ([place]), Osteoarthritis (OA), Pneumonia, Renal Disease, Skin Disorder Additional Past Medical History / Comment(s): Duodenal ulcer, hiatal hernia, diverticular disease with bowel resection, hemorrhoids, multiple bronchitis, pneumonias, arthritis in back, fingers and feet, migraines years ago, tinnitis bilaterally at times, [place] R ear, macular degeneration bilaterally, nephrolithiasis with surgery, occasional vertigo, rosacia. Last Myocardial Infarction Date:: 2013 History of Any Multi-Drug Resistant Organisms: None Reported Past Surgical History: Appendectomy, Bowel Resection, Cholecystectomy, Heart Catheterization, Hernia Repair, Hysterectomy Additional Past Surgical History / Comment(s): 2013 cardiac cath-minimal disease, EGD, colonoscopy, bilateral inguinal hernia repairs, kidney stone removal, bilateral cataract removal with lens implants, R foot surgery. Past Anesthesia/Blood Transfusion Reactions: No Reported Reaction Past Psychological History: No Psychological Hx Reported Smoking Status: Former smoker Past Alcohol Use History: None Reported Past Drug Use History: None Reported - Past Family History Mother Additional Family Medical History / Comment(s): Mother had a thoracic aneurysm and of a brain aneursym rupture at the age of 66yrs. Father Additional Family Medical History / Comment(s): "blood clot to heart"- of at the age of 58yrs. General Exam Limitations: no limitations Course Vital Signs 08/01/20 19:23 Temperature 98.1 F Pulse Rate 69 Respiratory 18 Rate Blood Pressure 154/64 O2 Sat by Pulse 97 Oximetry Disposition Clinical Impression: Leg swelling Disposition: HOME SELF-CARE Is patient prescribed a controlled substance at d/c from ED?: No Referrals: Carmelo Malhotra MD [Primary Care Provider] - 1-2 days Time of Disposition: 22:29
--- NOTE | 2020-08-01 22:19 | US ---
EXAMINATION TYPE: US venous doppler duplex LE RT DATE OF EXAM: 08/01/2020 10:09 PM COMPARISON: NONE CLINICAL HISTORY: suspect DVT. Takes Plavix; ecchymosis to right foot. Patient denies trauma to right foot. SIDE PERFORMED: Right TECHNIQUE: The lower extremity deep venous system is examined utilizing real time linear array sonog alexandre with graded compression, doppler sonography and color-flow sonography. VESSELS IMAGED: Common Femoral Vein Deep Femoral Vein Greater Saphenous Vein * Femoral Vein Popliteal Vein Small Saphenous Vein * Proximal Calf Veins (* superficial vessels) Right Leg: Negative for DVT. Edema channels are seen at right ankle. IMPRESSION: No evidence of deep vein thrombosis in the right leg. There is subcutaneous edema.
[2020-08-01 22:57] VITALS: BP 133/78; PULSE 66
== END 2020-08-01 23:17 | disposition home or self-care (01) ==
LOC: EC 18:35
DX: M79.89 Other specified soft tissue disorders (principal); E78.5 Hyperlipidemia, unspecified; I10 Essential (primary) hypertension; I25.10 Atherosclerotic heart disease of native coronary artery without angina pectoris; I25.2 Old myocardial infarction; K21.9 Gastro-esophageal reflux disease without esophagitis; Z87.891 Personal history of nicotine dependence
CPT/HCPCS: 99283